=== PATIENT | male | born 1955 | race Caucasian/White ===

== ENCOUNTER 2020-01-13 07:31 | Day surgery (SDC) | payer MEDICARE, BC ==
[~2020-01-13] VITALS: Ht 177.8 cm; Wt 114.5 kg
[2020-01-13] MEDS ORDERED: ATOR20 (08:05)
[2020-01-13] MEDS ORDERED: MELA3 (08:05)
[2020-01-13] MEDS ORDERED: Aspir 8181 MG PO (08:05)
[2020-01-13] MEDS ORDERED: GABA300 (08:06)
[2020-01-13] MEDS ORDERED: DULCOLAX5 MG PO (08:06)
[2020-01-13] MEDS ORDERED: METF500 PO (08:07)
[2020-01-13] MEDS ORDERED: Prinivil10 MG (08:07)
[2020-01-13] MEDS ORDERED: METO50ER PO (08:07)
[2020-01-13] MEDS ORDERED: NITR.4SL (08:08)
[2020-01-13] MEDS ORDERED: Norco 10-325 T1 EACH (08:08)
[2020-01-13] MEDS ORDERED: INSULANPEN SC (08:09)
[2020-01-13] MEDS ORDERED: Nortriptyline H50 MG PO (08:09)
[2020-01-13] MEDS ORDERED: TRAZ50 PO (08:09)
--- NOTE | 2020-01-13 08:37 | NUR ---
01/13/20 0837 Hnery Jackson 1ST ATTEMPT IN RIGHT HAND VEIN BLEW , RN DLB ATTEMPTED 2ND IN RIGHT WRIST AND 3RD IN LEFT HAND VEIN BLEW AND ROLLED-CMT
== END 2020-01-13 10:05 | disposition home or self-care (01) ==
LOC: ORSCSDS 07:31
PROVIDERS: Internal Medicine Gastroenterology
PROC: 0DJD8ZZ Inspection of Lower Intestinal Tract, Via Natural or Artificial Opening Endoscopic (ICD-10-PCS; principal; 2020-01-13 09:00)
DX: Z12.11 Encounter for screening for malignant neoplasm of colon (principal); Z86.010 Personal history of colon polyps; K57.30 Diverticulosis of large intestine without perforation or abscess without bleeding; K64.8 Other hemorrhoids; E11.40 Type 2 diabetes mellitus with diabetic neuropathy, unspecified; Z79.4 Long term (current) use of insulin; Z79.84 Long term (current) use of oral hypoglycemic drugs; Z79.82 Long term (current) use of aspirin; Z79.899 Other long term (current) drug therapy; G47.33 Obstructive sleep apnea (adult) (pediatric); E78.5 Hyperlipidemia, unspecified; I25.10 Atherosclerotic heart disease of native coronary artery without angina pectoris; I50.9 Heart failure, unspecified; E66.01 Morbid (severe) obesity due to excess calories; Z68.36 Body mass index [BMI] 36.0-36.9, adult
CPT/HCPCS: 82947; J2250; J2704; J7120

== ENCOUNTER → 2022-10-29 | Emergency (ER) | payer MEDICARE, BC ==
[~2022-10-29] MED LIST: ATOR20; Aspir 8181 MG PO; CEPH500 PO; DULCOLAX5 MG PO; GABA300; INSULANPEN SC; MELA3; METF500 PO; METO50ER PO; NITR.4SL; Norco 10-325 T1 EACH; Nortriptyline H50 MG PO; Prinivil10 MG; TRAZ50 PO
== END ==
DX: S61.112A Laceration without foreign body of left thumb with damage to nail, initial encounter (principal); W26.0XXA Contact with knife, initial encounter; Z79.82 Long term (current) use of aspirin; Z79.899 Other long term (current) drug therapy; Z79.4 Long term (current) use of insulin

== ENCOUNTER 2022-11-01 09:47 | Emergency (ER) | payer MEDICARE, BC ==
[~2022-11-01] VITALS: Ht 177.8 cm; Wt 99.8 kg
== END 2022-11-01 11:32 | disposition home or self-care (01) ==
LOC: ER 09:47
DX: Z48.01 Encounter for change or removal of surgical wound dressing (principal); E11.9 Type 2 diabetes mellitus without complications; I10 Essential (primary) hypertension; E78.5 Hyperlipidemia, unspecified; Z88.5 Allergy status to narcotic agent; Z88.2 Allergy status to sulfonamides; Z79.899 Other long term (current) drug therapy; Z79.82 Long term (current) use of aspirin; Z79.4 Long term (current) use of insulin
CPT/HCPCS: 99282

== ENCOUNTER → 2023-09-30 | Outpatient (CLI) | payer MEDICARE, BC | LOC: LAB 16:55 → LAB SHORT 16:55 | DX: B35.4 Tinea corporis (principal) | CPT/HCPCS: 87102 ==

== ENCOUNTER → 2023-10-30 | Outpatient (CLI) | payer MEDICARE, BC ==
[2023-10-30 18:54] LABS: BASOPHILS ABSOLUTE AUTO 0.03 K/mm3 (0.00-0.23); BASOPHILS PERCENT AUTO 1 % (0-2); EOSINOPHILS ABSOLUTE AUTO 0.16 K/mm3 (0.00-0.68); EOSINOPHILS PERCENT AUTO 3 % (0-6); Hematocrit 44.2 % (37.0-53.0); Hemoglobin 15.5 g/dL (13.5-17.5); IMMATURE GRAN ABSOLUTE AUTO 0.01 K/mm3 (0.00-0.10); IMMATURE GRAN PERCENT AUTO 0 % (0-1); LYMPHOCYTES ABSOLUTE AUTO 2.68 K/mm3 (0.84-5.20); LYMPHOCYTES PERCENT AUTO 45 % (21-46); MONOCYTES ABSOLUTE AUTO 0.51 K/mm3 (0.16-1.47); MONOCYTES PERCENT AUTO 9 % (4-13); Mean Corpuscular HGB Conc 35.1 g/dL (31.5-36.5); Mean Corpuscular Volume 91 fL (80-100); Mean Platelet Volume 10.9 fL (9.1-12.4); NEUTROPHILS ABSOLUTE AUTO 2.61 K/mm3 (1.96-9.15); NEUTROPHILS PERCENT AUTO 43 % (41-73); Platelet Count 216 K/mm3 (150-400); RDW Coefficient Variation 12.4 % (11.7-14.2); RDW Standard Deviation 41.5 fL (35.1-46.3); Red Blood Cell Count 4.84 M/mm3 (4.30-5.90)
[2023-10-30 21:39] LABS: Alanine Aminotransfer (ALT/SGP 18 U/L (12-78); Albumin, Blood 3.6 g/dL (3.4-5.0); Albumin/Globulin Ratio 1.1 (0.8-1.8); Alk Phos 79 U/L (50-136); Anion Gap 5 mmol/L (6-16); Aspartate Aminotrans (AST/SGOT 13 U/L (12-37); Bilirubin, Total 0.3 mg/dL (0.1-1.0); Blood Urea Nitrogen 12 mg/dL (8-24); Bun/Creatinine Ratio 21.1 (12.0-20.0); CHOL/HDL RATIO 5.2; CO2, Blood 28 mmol/L (21-32); Chloride, Blood 105 mmol/L (98-108); Cholesterol 177 mg/dL (50-200); Creatinine, Blood 0.57 mg/dL (0.60-1.20); Globulin, Blood 3.3 g/dL (2.2-4.0); Glomerular Filtration Rate 106 (60-); Glucose, Blood 249 mg/dL (70-99); HDL Cholesterol 34 mg/dL (>39); LDL/HDL RATIO 3.3; Low Density Lipoprotein Chol 111 mg/dL (0-110); Potassium, Blood 4.3 mmol/L (3.5-5.5); Sodium, Blood 138 mmol/L (136-145); Total Protein, Blood 6.9 g/dL (6.4-8.2); Triglycerides 160 mg/dL (30-160); Very Low Density Lipoprot Chol 32 mg/dL (6-32)
== END ==
LOC: LAB 12:35 → LAB SHORT 12:35
PROVIDERS: Family Medicine
DX: E11.9 Type 2 diabetes mellitus without complications (principal); Z12.5 Encounter for screening for malignant neoplasm of prostate; Z80.42 Family history of malignant neoplasm of prostate
CPT/HCPCS: 80053; 80061; 85025; G0103

== ENCOUNTER → 2024-05-27 | Outpatient (CLI) | payer MEDICARE, BC ==
[2024-05-27 15:35] LABS: International Normalized Ratio 0.96; Prothrombin Time Results 10.3 Sec (9.7-11.5)
[2024-05-27 15:37] LABS: BASOPHILS ABSOLUTE AUTO 0.05 K/mm3 (0.00-0.23); BASOPHILS PERCENT AUTO 1 % (0-2); EOSINOPHILS ABSOLUTE AUTO 0.15 K/mm3 (0.00-0.68); EOSINOPHILS PERCENT AUTO 2 % (0-6); Hemoglobin 16.3 g/dL (13.5-17.5); IMMATURE GRAN ABSOLUTE AUTO 0.02 K/mm3 (0.00-0.10); IMMATURE GRAN PERCENT AUTO 0 % (0-1); LYMPHOCYTES PERCENT AUTO 37 % (21-46); MONOCYTES ABSOLUTE AUTO 0.47 K/mm3 (0.16-1.47); MONOCYTES PERCENT AUTO 7 % (4-13); Mean Corpuscular HGB 32.2 pg (26.0-34.0); Mean Corpuscular HGB Conc 34.7 g/dL (31.5-36.5); Mean Corpuscular Volume 93 fL (80-100); Mean Platelet Volume 10.5 fL (9.1-12.4); NEUTROPHILS ABSOLUTE AUTO 3.55 K/mm3 (1.96-9.15); NEUTROPHILS PERCENT AUTO 53 % (41-73); Platelet Count 264 K/mm3 (150-400); RDW Coefficient Variation 12.3 % (11.7-14.2); RDW Standard Deviation 41.8 fL (35.1-46.3); Red Blood Cell Count 5.06 M/mm3 (4.30-5.90); White Blood Cell Count 6.74 K/mm3 (4.00-11.30)
== END | disposition home or self-care (01) ==
LOC: LAB SHORT 14:59 → LAB 14:59
PROVIDERS: Family Medicine
DX: R58 Hemorrhage, not elsewhere classified (principal); R23.3 Spontaneous ecchymoses
CPT/HCPCS: 85025; 85610; 85730

== ENCOUNTER → 2024-09-21 | Outpatient (CLI) | payer MEDICARE, BC | LOC: LAB SHORT 13:18 → LAB 13:18 | DX: L90.5 Scar conditions and fibrosis of skin (principal) | CPT/HCPCS: 88305 ==

== ENCOUNTER 2024-12-16 16:27 | Emergency (ER) | payer MEDICARE, BC ==
[~2024-12-16] VITALS: Ht 177.8 cm; Wt 89.4 kg
[2024-12-16 18:31] LABS: BASOPHILS ABSOLUTE AUTO 0.03 K/mm3 (0.00-0.23); BASOPHILS PERCENT AUTO 0 % (0-2); EOSINOPHILS ABSOLUTE AUTO 0.06 K/mm3 (0.00-0.68); EOSINOPHILS PERCENT AUTO 1 % (0-6); Hematocrit 44.9 % (37.0-53.0); Hemoglobin 15.6 g/dL (13.5-17.5); IMMATURE GRAN ABSOLUTE AUTO 0.01 K/mm3 (0.00-0.10); IMMATURE GRAN PERCENT AUTO 0 % (0-1); LYMPHOCYTES ABSOLUTE AUTO 2.22 K/mm3 (0.84-5.20); LYMPHOCYTES PERCENT AUTO 31 % (21-46); MONOCYTES ABSOLUTE AUTO 0.54 K/mm3 (0.16-1.47); MONOCYTES PERCENT AUTO 8 % (4-13); Mean Corpuscular HGB 32.2 pg (26.0-34.0); Mean Corpuscular HGB Conc 34.7 g/dL (31.5-36.5); Mean Corpuscular Volume 93 fL (80-100); Mean Platelet Volume 10.4 fL (9.1-12.4); NEUTROPHILS ABSOLUTE AUTO 4.24 K/mm3 (1.96-9.15); NEUTROPHILS PERCENT AUTO 60 % (41-73); Platelet Count 232 K/mm3 (150-400); RDW Coefficient Variation 12.5 % (11.7-14.2); RDW Standard Deviation 42.7 fL (35.1-46.3); Red Blood Cell Count 4.84 M/mm3 (4.30-5.90)
[2024-12-16 18:52] LABS: Albumin, Blood 3.5 g/dL (3.4-5.0); Albumin/Globulin Ratio 1.1 (0.8-1.8); Bilirubin, Total 0.2 mg/dL (0.1-1.0); Bun/Creatinine Ratio 19.7 (12.0-20.0); Calcium, Blood 8.9 mg/dL (8.5-10.1); Creatinine, Blood 0.81 mg/dL (0.60-1.20); Globulin, Blood 3.2 g/dL (2.2-4.0); Potassium, Blood 4.4 mmol/L (3.5-5.5); Total Protein, Blood 6.7 g/dL (6.4-8.2)
[2024-12-16 19:12] LABS: International Normalized Ratio 0.95; Prothrombin Time Results 10.2 Sec (9.7-11.5)
[2024-12-16] MEDS ORDERED: TRULICITY3 MG/0.5 M SC (20:23)
[2024-12-16 22:15] VITALS: BP 142/87
== END 2024-12-16 22:38 | disposition home or self-care (01) ==
LOC: ER 16:27
PROVIDERS: Student in an Organized Health Care Education/Training Program
DX: S06.6X9A Traumatic subarachnoid hemorrhage with loss of consciousness of unspecified duration, initial encounter (principal); S01.01XA Laceration without foreign body of scalp, initial encounter; W18.39XA Other fall on same level, initial encounter; I10 Essential (primary) hypertension; E78.5 Hyperlipidemia, unspecified; E11.9 Type 2 diabetes mellitus without complications; Z88.5 Allergy status to narcotic agent; Z88.2 Allergy status to sulfonamides; Z79.82 Long term (current) use of aspirin; Z79.899 Other long term (current) drug therapy; Z79.4 Long term (current) use of insulin
CPT/HCPCS: 70450; 72125; 80053; 85025; 85610; 93005; 93010; 99284-25

== ENCOUNTER → 2025-01-27 | Outpatient (CLI) | payer MEDICARE, BC ==
[~2025-01-27] MED LIST changes: +TRULICITY3 MG/0.5 M SC
== END ==
LOC: LAB SHORT 15:21 → LAB 15:21
PROVIDERS: Family Medicine
DX: Z12.5 Encounter for screening for malignant neoplasm of prostate (principal)
CPT/HCPCS: G0103

== ENCOUNTER → 2025-08-17 | Outpatient (CLI) | payer MEDICARE, BC | LOC: LAB 10:20 → LAB SHORT 10:20 | DX: M62.89 Other specified disorders of muscle (principal) | CPT/HCPCS: 84403 ==

== ENCOUNTER 2025-11-11 06:42 | Day surgery (SDC) | payer MEDICARE, BC ==
[2025-11-11] VITALS (9 sets, daily range): BP systolic 107–146; BP diastolic 64–77
[~2025-11-11] VITALS: Ht 180.3 cm; Wt 85.3 kg
[~2025-11-11 06:42] MED LIST changes: +LOSA25 PO; -Norco 10-325 T1 EACH; +Norco 10-325 T1 EACH PO; +STEGLATRO15 MG PO; +TRULICITY4.5 MG/0.5 SQ; +VITAMIN B-122000 MC1 PO; +ZYRTEC10 M2 PO
[2025-11-11] MEDS ORDERED: RED YEAST RICE55 MG PO (07:22)
[2025-11-11] MEDS ORDERED: TRULICITY4.5 MG/0.5 SC (07:29)
[2025-11-11] MEDS ORDERED: NS 500 ML IV ONE (07:33)
[2025-11-11] MEDS ORDERED: Heparin Sodium 1000 Units/ML 10ML MDV ONE ×2 (07:34→08:19)
[2025-11-11] MEDS ORDERED: NS 1,000 ML IV ONE ×2 (07:34→08:19)
[2025-11-11] MEDS ORDERED: Midazolam HCl 1MG / ML 2ML Vial ONE (08:18)
[2025-11-11] MEDS ORDERED: FentaNYL Citrate 50 MCG/ML 2 ML Injection ONE (08:19)
[2025-11-11] MEDS ORDERED: CLOP75 PO (10:01)
--- NOTE | 2025-11-11 10:27 | NUR ---
PT BACK TO RECOVERY ROOM AT 0950. PT DROWSY, BUT WAKES EASILY TO VERBAL STIMULI. PT RESTING SUPINE WITH LEGS AND HEAD FLAT. VSS. R GROIN SITE HAS TEGADERM OVER ANGIO SEAL CLOSURE DEVICE. SOFT AND NON TENDER. NO BLEEDING OR HEMATOMA.
--- NOTE | 2025-11-11 11:25 | NUR ---
PT SITTING UP 30 DEGRESS. PT GIVEN SIPS OF WATER. ATTEMPTING TO USE URINAL. TO BEDSIDE.
--- NOTE | 2025-11-11 11:45 | NUR ---
PT SITTING UP, EATING. SPOUSE AT BEDSIDE. R GROIN SOFT, NON TENDER
--- NOTE | 2025-11-11 12:12 | NUR ---
MD PRESENT AT BEDSIDE DISCUSSING PROCEDURE RESULTS WITH PATIENT AND SPOUSE
--- NOTE | 2025-11-11 13:00 | NUR ---
R GROIN SOFT, PT UP TO BR AND TO GET DRESSED.SPOUSE ASSISTING. PT AND SPOUSE UPDATED ON D/C INSTRUCTIONS. 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 IV D/C CATHETER INTACT. PT WHEELED OUT TO VEHICLE. D/C INSTRUCTIONS IN HAND.
== END 2025-11-11 13:00 | disposition home or self-care (01) ==
LOC: MHTC 06:42
DX: E11.51 Type 2 diabetes mellitus with diabetic peripheral angiopathy without gangrene (principal); I70.245 Atherosclerosis of native arteries of left leg with ulceration of other part of foot; L97.522 Non-pressure chronic ulcer of other part of left foot with fat layer exposed; I70.201 Unspecified atherosclerosis of native arteries of extremities, right leg; I87.2 Venous insufficiency (chronic) (peripheral); E78.2 Mixed hyperlipidemia; I25.10 Atherosclerotic heart disease of native coronary artery without angina pectoris; I10 Essential (primary) hypertension; Z79.82 Long term (current) use of aspirin; Z79.84 Long term (current) use of oral hypoglycemic drugs; Z79.899 Other long term (current) drug therapy; Z88.2 Allergy status to sulfonamides; Z88.5 Allergy status to narcotic agent; Z88.8 Allergy status to other drugs, medicaments and biological substances; Z95.1 Presence of aortocoronary bypass graft
CPT/HCPCS: 75625; 75716; 75774; 76937; 99152; 99153; C1725; C1760; C1769; C1887; C1894; C9764; C9772; J1644; J2250; J3010; J7030; J7050; Q9967